=== PATIENT | female | born 1935 | race Caucasian/White ===

== ENCOUNTER → 2016-02-16 | Outpatient (CLI) | payer MEDICARE ==
[2016-02-16 11:30] LABS: MEAN CORPUSCULAR HEMOGLOBIN 30.8 PG (26.0-34.0); MEAN CORPUSCULAR HGB CONC 33.2 g/dL (31.0-37.0); MEAN PLATELET VOLUME 8.9 FL (6.0-9.5); WHITE BLOOD COUNT 3.16 10^3uL (4.0-11.0)
[2016-02-16 11:38] LABS: BILIRUBIN,URINE Negative (Negative); COLOR,URINE Yellow; GLUCOSE, URINE (UA) Negative (Negative); LEUKOCYTE ESTERASE, URINE 1+ (Negative); UROBILINOGEN,URINE 0.2 mg/dL (0.2-1.0)
[2016-02-16 11:49] LABS: CLARITY,URINE Slightly Cloudy
[2016-02-16 11:50] LABS: URINE CENTRIFUGED VOLUME 12 mL
[2016-02-16 12:11] LABS: ANION GAP 14.8 MEQ/L (3-15); CALCULATED IONIZED CALCIUM 4.3 mg/dL (3.8-4.6); TOTAL PROTEIN 6.6 g/dL (6.4-8.5)
== END ==
LOC: LAB 10:40
PROVIDERS: ATTEND Orthopaedic Surgery
DX: Z01.818 Encounter for other preprocedural examination (principal)
CPT/HCPCS: 36415; 80053; 81003; 81015; 85027

== ENCOUNTER → 2016-04-01 | Outpatient (CLI) | payer MEDICARE | LOC: RAD 16:57 | PROVIDERS: ATTEND Orthopaedic Surgery | DX: Z96.652 Presence of left artificial knee joint (principal) | CPT/HCPCS: 73560 ==

== ENCOUNTER 2016-04-05 13:00 | Outpatient (RCR) | payer MEDICARE ==
--- NOTE | 2016-03-02 12:49 | PT/OT/ST INITIAL EVALUATION ---
Department of Health and Human Services Form Approved [facility] Care Financing Administration OMB No. [id number] PLAN OF CARE/ASSESSMENT FOR OUTPATIENT REHABILITATION (Complete for Initial Claims Only) 1. LAST NAME Mag FIRST NAME Mini Yancey 2. ACC # [id number] 3. [facility] [id number] 4. PROVIDER NO. [id number] 5. TYPE: X PT 6. PRIOR THERAPY (Same condition) None 7. PRIMARY DX Status post left total knee replacement 8. SECONDARY DX Limited range of motion, strength and gait 9. ONSET DATE 02/24/2016 10. REFERRAL DATE 02/27/2016 11. SOC. DATE/TIME 03/01/2016 15:08 12. PRIOR LEVEL OF FUNCTION; PERTINENT HISTORY (Prior therapy results, reason for referral.) S: The patient was referred to physical therapy by Dr. Deacon Dugan in [place] with the diagnosis of left total knee replacement. The patient reports that she had been having pain at her left knee for some time and was having difficulty walking, having to use a cane. 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 The patient is a homemaker. Overall health rating: She rates her overall health as good. Current pain rating is 1/10. Medication includes Celebrex and aspirin. The patient's goal for therapy is to be able to walk and return to normal daily activities. 13. INITIAL ASSESSMENT/SAFETY PRECAUTIONS/MEDICAL COMPLICATIONS (Level of function at start of care. Be specific, use objective measures, list problems.) O: APPEARANCE: The patient is an 81-year-old female. She presents to physical therapy ambulating with a front-wheeled walker. Stiff legged gait pattern on the left. She demonstrated forward flexed posture. On appearance of left knee the patient had removed the DuoDERM dressing due to it rolling up and not being in contact with her skin. The patient had the incision covered with 4 x 4s. The appearance of the incision looked healthy and clean. No drainage noted. No redness noted. Mild swelling at left knee. Mild bruising. GIRTH MEASUREMENT: Medial joint line right knee 41.0 cm, left 42.5 cm. SPECIAL TESTS: The patient's lower extremity functional index score was 10/80. RANGE OF MOTION/FLEXIBILITY: Right knee -3 degrees from terminal knee extension to 125 degrees flexion. Left knee -5 degrees from terminal knee extension to 96 degrees flexion. STRENGTH: Right hip and knee strength were 5/5 manual muscle test. Left the patient demonstrated a fair quad contraction. The patient was able to perform an assisted straight leg raise. TODAY'S TREATMENT: Included initial evaluation followed by instruction of home exercise program. The patient also educated on dressing incision and wrapping it to prevent it from getting wet when showering or bathing. 14. INITIAL POC: (Specify procedures, modalities, short and senior care goals) A: The patient is status post left total knee replacement. PROGNOSIS: The patient is a good candidate for physical therapy to regain range of motion, flexibility, stabilization and strength at left knee. GOALS: 1. The patient to be compliant with home exercise program in 1 week. 2. The patient to demonstrate full terminal knee extension at left knee in 3 weeks. 3. The patient to ambulate without an assistive device with good symmetry and balance in 4 weeks. 4. The patient to be able to ascend and descend stairs alternating steps with good stability and control in 6 weeks. 5. The patient to attain 120 degrees flexion at left knee in 6 weeks. 6. The patient to report that she is able to perform her normal daily activities safely without pain at her left knee in 6 weeks. PLAN: The patient will be seen 3 times a week for 4 weeks. Plan on progressing the patient with range of motion, flexibility, stabilization, and strengthening activities as tolerated. Modalities and manual therapy will be used as necessary to decrease pain and inflammation. 15. FUNCTIONAL LEVEL (End of claim period) 16. PHYSICIAN SIGNATURE ? ON FILE OR ENTER HERE: 17. DATE: I certify the need for these services furnished under this plan of care and if for partial hospitalization. 18. CERTIFICATION FROM THROUGH FORM [id number]
== END 2016-04-11 12:00 | disposition home or self-care (01) ==
LOC: PT 13:00
PROVIDERS: ATTEND Orthopaedic Surgery
DX: Z47.1 Aftercare following joint replacement surgery (principal); Z96.652 Presence of left artificial knee joint
CPT/HCPCS: 97016; 97110; 97116; 97140; G8978; G8979